=== PATIENT | male | born 1990 | race American Indian/Alaskan Native ===

== ENCOUNTER 2018-07-30 23:14 | Emergency (ER) | payer MEDICAID ==
--- NOTE | 2018-07-30 23:44 | EDM.PDOC ---
ED HPI GENERAL MEDICAL PROBLEM - General Chief Complaint: ENT Problem Stated Complaint: TOOTH PAIN Time Seen by Provider: 07/30/18 23:30 Source of Information: Reports: Patient History Limitations: Reports: No Limitations - History of Present Illness INITIAL COMMENTS - FREE TEXT/NARRATIVE: This patient comes in complaints of a toothache. It's his left upper jaw. He also has a problem with one of his left incisors. He does want dental referral. Left Upper Jaw Pain Score (Numeric/FACES): 8 - Related Data Allergies Allergy/AdvReac Type Severity Reaction Status Date / Time No Known Allergies Allergy Verified 07/30/18 23:29 Home Meds: Home Meds NK [No Known Home Meds] 12/30/14 [History] Past Medical History - Past Health History Medical/Surgical History: Denies Medical/Surgical History Social & Family History - Tobacco Use Smoking Status *Q: Unknown Ever Smoked - Caffeine Use Caffeine Use: Reports: Energy Drinks, Soda - Recreational Drug Use Recreational Drug Use: No ED ROS ENT - Review of Systems Review Of Systems: ROS reveals no pertinent complaints other than HPI. ED EXAM, ENT - Physical Exam Exam: See Below Exam Limited By: No Limitations General Appearance: Alert, Mild Distress Mouth/Throat: Other (Quite a few missing teeth. One of the left upper incisors is severely carious and the most of it is missing left upper molar the last remaining one seems to be tender no obvious abscess however.) Course - Vital Signs Last Recorded V/S: Last Vital Signs Temp 37.0 C 07/30/18 23:27 Pulse 114 H 07/30/18 23:27 Resp 14 07/30/18 23:27 BP 129/77 07/30/18 23:27 Pulse Ox 99 07/30/18 23:27 Departure - Departure Time of Disposition: 23:43 Disposition: Home, Self-Care 01 Condition: Fair Clinical Impression: Toothache - Discharge Information Instructions: Dental Caries, Pediatric Referrals: PCP,None [Primary Care Provider] - Forms: ED Department Discharge Additional Instructions: Use [place] 5/325 one tab every 4-6 hours as needed for pain. (#12) this medication can cause sedation and impair driving. It can cause dependence. Follow-up with the dentist as per your referral.
[2018-07-30 23:51] VITALS: BP 129/77
== END 2018-07-30 23:55 | disposition home or self-care (01) ==
LOC: JP.ED 23:14
DX: K08.89 Other specified disorders of teeth and supporting structures (principal)
CPT/HCPCS: 99283

== ENCOUNTER 2018-08-12 19:18 | Emergency (ER) | payer MEDICAID ==
[2018-08-12 20:10] VITALS: BP 145/95
[2018-08-12] MEDS ORDERED: Ketorolac 60 MG/2 ML SDV IM ONE (20:40)
--- NOTE | 2018-08-12 20:41 | EDM.PDOC ---
ED HPI GENERAL MEDICAL PROBLEM - General Chief Complaint: ENT Problem Stated Complaint: TOOTHACHE Time Seen by Provider: 08/12/18 20:32 Source of Information: Reports: Patient, RN Notes Reviewed History Limitations: Reports: No Limitations - History of Present Illness INITIAL COMMENTS - FREE TEXT/NARRATIVE: 28-year-old gentleman presents emergency department today with complaint of dental pain, he recently chipped tooth and he has had significant pain from that as well as facial swelling but no fevers he is set up through the [facility] for dental referral on Wednesday tooth pain left side Pain Score (Numeric/FACES): 8 - Related Data Allergies Allergy/AdvReac Type Severity Reaction Status Date / Time No Known Allergies Allergy Verified 07/30/18 23:29 Home Meds: Home Meds Acetaminophen [Tylenol] 650 mg PO Q4H PRN 08/12/18 [History] Benzocaine [Orajel] 1 applic TOP Q1H PRN 08/12/18 [History] Past Medical History - Past Health History Medical/Surgical History: Denies Medical/Surgical History - Infectious Disease History Infectious Disease History: Reports: Chicken Pox Social & Family History - Tobacco Use Smoking Status *Q: Current Every Day Smoker Years of Tobacco use: 20 Packs/Tins Daily: 0.5 Used Tobacco, but Quit: No - Caffeine Use Caffeine Use: Reports: Coffee, Soda - Recreational Drug Use Recreational Drug Use: No ED ROS ENT - Review of Systems Review Of Systems: See Below Constitutional: Denies: Fever HEENT: Reports: Dental Pain Respiratory: Reports: No Symptoms ED EXAM, ENT - Physical Exam Exam: See Below Text/Narrative:: Mouth mucosa is moist and pink dentition is poor tooth #10 is broken at the gumline it is tender to the touch mild amount erythema appreciated around tooth , there is also tenderness to palpation on the upper lip around the nose, neck supple no thyromegaly no tracheal deviation cervical nodes Exam Limited By: No Limitations General Appearance: Alert, WD/WN, No Apparent Distress Course - Vital Signs Last Recorded V/S: Last Vital Signs Temp 97.7 F 08/12/18 20:23 Pulse 103 H 08/12/18 20:23 Resp 16 08/12/18 20:23 BP 145/95 H 08/12/18 20:23 Pulse Ox 99 08/12/18 20:08 Departure - Departure Time of Disposition: 20:40 Disposition: Home, Self-Care 01 Condition: Fair Clinical Impression: Dental abscess - Discharge Information Referrals: PCP,None [Primary Care Provider] - Additional Instructions: Take full course of antibiotics, use ibuprofen for baseline pain control use hydrocodone for breakthrough pain, please keep your dentist follow-up on Wednesday - Assessment/Plan Plan: Assessment Acuity = acute Site and laterality = dental abscess tooth #10 Etiology = secondary to dental caries bacterial cause Manifestations = pain Location of injury = Home Lab values = none Plan Prescription written for hydrocodone 5/325 one tab by mouth 3 times a day when necessary total #20, amoxicillin 500 mg by mouth 3 times a day 10 days, was provided 60 mg Toradol in the emergency department he will follow-up with dentistry on Wednesday This note was dictated using [employer] voice recognition software please call with any questions on syntax or grammar.
== END 2018-08-12 21:00 | disposition home or self-care (01) ==
LOC: JP.ED 19:18
DX: K04.7 Periapical abscess without sinus (principal); F17.210 Nicotine dependence, cigarettes, uncomplicated; Z79.899 Other long term (current) drug therapy
CPT/HCPCS: 96372; 99283; J1885

== ENCOUNTER 2018-08-25 16:31 | Emergency (ER) | payer MEDICAID ==
[2018-08-25 16:52] VITALS: BP 135/78
[2018-08-25] MEDS ORDERED: Acetaminophen/Codeine 300-30 MG Tab PO ONE (17:02)
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
== END 2018-08-25 17:34 | disposition home or self-care (01) ==
LOC: JP.ED 16:31
DX: K91.840 Postprocedural hemorrhage of a digestive system organ or structure following a digestive system procedure (principal); F17.210 Nicotine dependence, cigarettes, uncomplicated
CPT/HCPCS: 99283; A9270

== ENCOUNTER 2019-08-03 14:01 | Emergency (ER) | payer MEDICAID ==
[2019-08-03 14:17] VITALS: BP 127/87; PULSE 107
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
== END 2019-08-03 15:32 | disposition home or self-care (01) ==
LOC: JP.ED 14:01
DX: S02.2XXA Fracture of nasal bones, initial encounter for closed fracture (principal); F17.210 Nicotine dependence, cigarettes, uncomplicated; Y04.2XXA Assault by strike against or bumped into by another person, initial encounter
CPT/HCPCS: 70486; 99283-25

== ENCOUNTER 2019-08-24 17:44 | Emergency (ER) | payer MEDICAID ==
[2019-08-24 17:50] VITALS: BP 129/69; PULSE 100
[2019-08-24] MEDS ORDERED: Lidocaine 1% with EPINEPHrine 1:100,000 50 ML MDV SUBCUT STA (18:16)
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
[2019-08-24] MEDS ORDERED: fentaNYL 100 MCG/2 ML SDV IVPUSH ONE (19:29)
--- NOTE | 2019-08-25 09:19 | CR ---
Hand Comp Min 3V Rt CLINICAL HISTORY: Injury FINDINGS: There is no acute fracture or dislocation of the hand. Articular surfaces are smooth. Impression: Negative
== END 2019-08-24 20:05 | disposition home or self-care (01) ==
LOC: JP.ED 17:44
DX: S01.511A Laceration without foreign body of lip, initial encounter (principal); S01.512A Laceration without foreign body of oral cavity, initial encounter; F17.210 Nicotine dependence, cigarettes, uncomplicated; Y04.0XXA Assault by unarmed brawl or fight, initial encounter
CPT/HCPCS: 12011; 12013; 40830; 70486; 73130; 96374; 99283; J3010

== ENCOUNTER 2019-11-05 10:37 | Emergency (ER) | payer MEDICAID ==
[2019-11-05 10:48] VITALS: BP 125/72; PULSE 103
--- NOTE | 2019-11-05 11:27 | EDM.PDOC ---
ED HPI GENERAL MEDICAL PROBLEM - General Chief Complaint: ENT Problem Stated Complaint: BROKEN TEETH, MOUTH PAIN Time Seen by Provider: 11/05/19 11:10 Source of Information: Reports: Patient History Limitations: Reports: No Limitations - History of Present Illness INITIAL COMMENTS - FREE TEXT/NARRATIVE: 29-year-old male with chronic recurring dental caries and dental pain presents with 3 to 4 days of intense left maxillary pain and slight swelling. No fever or chills. Onset: Gradual Duration: Day(s): (4 days) Location: Reports: Face (Left jaw) Associated Symptoms: Reports: No Other Symptoms Oral/Mouth Pain Score (Numeric/FACES): 8 - Related Data Allergies Allergy/AdvReac Type Severity Reaction Status Date / Time No Known Allergies Allergy Verified 11/05/19 10:50 Home Meds: Home Meds NK [No Known Home Meds] 08/03/19 [History] Past Medical History - Past Health History Medical/Surgical History: Denies Medical/Surgical History HEENT History: Reports: None Musculoskeletal History: Reports: Fracture Neurological History: Reports: Concussion - Infectious Disease History Infectious Disease History: Reports: Chicken Pox - Past Surgical History Head Surgeries/Procedures: Reports: None HEENT Surgical History: Reports: Other (See Below) Other HEENT Surgeries/Procedures: wisdom teeth removal Neurological Surgical History: Reports: None Musculoskeletal Surgical History: Reports: None Social & Family History - Tobacco Use Smoking Status *Q: Current Every Day Smoker Years of Tobacco use: 15 Packs/Tins Daily: 0.5 Used Tobacco, but Quit: No Second Hand Smoke Exposure: Yes - Caffeine Use Caffeine Use: Reports: Coffee, Energy Drinks, Soda, Tea - Recreational Drug Use Recreational Drug Use: No ED ROS ENT - Review of Systems Review Of Systems: See Below Constitutional: Denies: Fever, Chills HEENT: Reports: Dental Pain Respiratory: Denies: Shortness of Breath Cardiovascular: Denies: Chest Pain GI/Abdominal: Denies: Nausea, Vomiting Skin: Denies: Erythema Neurological: Denies: Headache ED EXAM, ENT - Physical Exam Exam: See Below Exam Limited By: No Limitations General Appearance: Alert, No Apparent Distress (Looks uncomfortable but not distressed) Mouth/Throat: Other (Left maxillary canine has significant deep caries present with some gingival erythema. Very tender to percussion of the tooth.) Course - Vital Signs Last Recorded V/S: Last Vital Signs Temp 97.1 F 11/05/19 10:50 Pulse 103 H 11/05/19 10:50 Resp 13 11/05/19 10:50 BP 125/72 11/05/19 10:50 Pulse Ox 97 11/05/19 10:50 - Re-Assessments/Exams Free Text/Narrative Re-Assessment/Exam: 11/05/19 12:00 Likely an infection of the left maxillary canines. Patient was placed on penicillin VK 500 mg 4 times a day for 10 full days, encouraged to continue with ibuprofen and also given 10 hydrocodone for extra pain control. A TITLE I INSTRUCTIONAL ASSISTANT search shows small limited prescriptions for dental pain over the past year. Information was given to the patient to contact our dental clinic this week. Departure - Departure Time of Disposition: 11:32 Disposition: Home, Self-Care 01 Clinical Impression: Dental abscess - Discharge Information Instructions: Dental Abscess Referrals: PCP,None [Primary Care Provider] - Forms: ED Department Discharge Care Plan Goals: Take antibiotic as prescribed, ibuprofen will help and add stronger pain medication as needed for breakthrough pain. Contact the dental clinic next week to discuss an appointment time. Do not stop antibiotic until it is finished. Return if worsening despite treatment. Sepsis Event Note - Evaluation Sepsis Screening Result: No Definite Risk - Focused Exam Vital Signs: Vital Signs Temp Pulse Resp BP Pulse Ox 11/05/19 10:50 97.1 F 103 H 13 125/72 97 11/05/19 10:46 97.1 F 103 H 13 125/72 97 Date Exam was Performed: 11/05/19 Time Exam was Performed: 11:59
== END 2019-11-05 11:32 | disposition home or self-care (01) ==
LOC: JP.ED 10:37
DX: K04.7 Periapical abscess without sinus (principal); K02.9 Dental caries, unspecified; F17.210 Nicotine dependence, cigarettes, uncomplicated; Z98.818 Other dental procedure status
CPT/HCPCS: 99283

== ENCOUNTER 2020-03-20 14:20 | Emergency (ER) | payer MEDICAID ==
[2020-03-20 14:36] VITALS: BP 133/77; PULSE 100
--- NOTE | 2020-03-20 14:48 | EDM.PDOC ---
ED HPI GENERAL MEDICAL PROBLEM - General Chief Complaint: Upper Extremity Injury/Pain Stated Complaint: PAIN IN LEFT WRIST AREA Time Seen by Provider: 03/20/20 14:44 Source of Information: Reports: Patient, RN Notes Reviewed History Limitations: Reports: No Limitations - History of Present Illness INITIAL COMMENTS - FREE TEXT/NARRATIVE: 29-year-old gentleman presents emergency department a complaint of right hand pain he injured himself couple days ago he is not sure of the mechanism of action he has difficulty opening and closing digits 4 and 5 Left Hand Pain Score (Numeric/FACES): 8 - Related Data Allergies Allergy/AdvReac Type Severity Reaction Status Date / Time No Known Allergies Allergy Verified 11/05/19 10:50 Home Meds: Home Meds NK [No Known Home Meds] 08/03/19 [History] Past Medical History Musculoskeletal History: Reports: Fracture Neurological History: Reports: Concussion - Infectious Disease History Infectious Disease History: Reports: Chicken Pox - Past Surgical History Head Surgeries/Procedures: Reports: None HEENT Surgical History: Reports: Other (See Below) Other HEENT Surgeries/Procedures: wisdom teeth removal Neurological Surgical History: Reports: None Musculoskeletal Surgical History: Reports: None Social & Family History - Tobacco Use Smoking Status *Q: Light Tobacco Smoker - Caffeine Use Caffeine Use: Reports: Coffee, Energy Drinks, Soda - Recreational Drug Use Recreational Drug Use: No Review of Systems - Review of Systems Review Of Systems: See Below Constitutional: Reports: No Symptoms Musculoskeletal: Reports: Hand Pain Skin: Reports: Bruising ED EXAM, GENERAL - Physical Exam Exam: See Below Free Text/Narrative:: Examination of the right hand I do appreciate some edema over the dorsal aspect of the hand there is also some bruising in the palmar aspect he has difficulty closing digits 4 and 5 secondary to pain radial pulses +2 sensation is intact ED TRAUMA EXTREMITY PROCEDURES - Splinting Left Upper Extremity Splint Site: Wrist Pre-Procedure NV Status: Normal Post-Procedure NV Status: Normal Splint Material: Fiberglass Splint Design: Gutter Applied & Form Fitted By: Provider, Nurse Provider Post-Splint Application NV Check: NV Status Normal, Good Position Complications: No Course - Vital Signs Last Recorded V/S: Last Vital Signs Temp 96.8 F L 03/20/20 14:36 Pulse 100 03/20/20 14:36 Resp 16 03/20/20 14:36 BP 133/77 09/02/20 14:36 Pulse Ox 99 03/20/20 14:36 - Orders/Labs/Meds Orders: Active Orders 24 hr Category Date Time Status Notify Provider Consults [RC] ASDIRECTED Care 03/20/20 15:36 Ordered Consult to Orthopedic Clinic [CONS] Routine Cons 03/20/20 15:36 Ordered Consult to Physician [CONS] Routine Cons 03/20/20 15:36 Ordered Departure - Departure Time of Disposition: 15:39 Disposition: Home, Self-Care 01 Condition: Fair Clinical Impression: Fracture of metacarpal bone Qualifiers: Encounter type: initial encounter Metacarpal bone: fifth Fracture type: closed Metacarpal location: neck Fracture alignment: displaced Laterality: left Qualified Code(s): S62.337A - Displaced fracture of neck of fifth metacarpal bone, left hand, initial encounter for closed fracture - Discharge Information Instructions: Metacarpal Fracture, [id number] Referrals: PCP,None [Primary Care Provider] - Forms: ED Department Discharge Additional Instructions: Use ibuprofen for baseline pain control use hydrocodone for breakthrough pain, please follow-up with orthopedics next week for further treatment continue to use the splint may take off for bathing Sepsis Event Note (ED) - Evaluation Sepsis Screening Result: No Definite Risk - Focused Exam Vital Signs: Vital Signs Temp Pulse Resp BP Pulse Ox 03/20/20 14:36 96.8 F L 100 16 133/77 99 03/20/20 14:34 96.8 F L 100 16 133/77 99 - My Orders Last 24 Hours: My Active Orders 03/20/20 15:36 Notify Provider Consults [RC] ASDIRECTED Consult to Orthopedic Clinic [CONS] Routine Consult to Physician [CONS] Routine - Assessment/Plan Last 24 Hours: My Active Orders 03/20/20 15:36 Notify Provider Consults [RC] ASDIRECTED Consult to Orthopedic Clinic [CONS] Routine Consult to Physician [CONS] Routine Plan: Assessment Acuity = acute Site and laterality = fifth metatarsal fracture left hand closed distal Etiology = unknown Manifestations = none Location of injury = Home Lab values = x-ray describes a fracture above Plan Discussed case with Dr. Murdock at 1530 currently agreed to see the patient in clinic in 1 week's time in the meantime he is placed in ulnar gutter splint hydrocodone 5/325 1 tab p.o. 3 times daily as needed given for pain control This note was dictated using [employer] voice recognition software please call with any questions on syntax or grammar.
--- NOTE | 2020-03-20 15:04 | CR ---
Hand Comp Min 3V Lt CLINICAL HISTORY: Fall FINDINGS: There is a comminuted minimally displaced fracture with palmar angulation at the distal fifth metacarpal. There is marginal articular surface involvement. Impression: Fracture fifth metacarpal
== END 2020-03-20 15:45 | disposition home or self-care (01) ==
LOC: JP.ED 14:20
DX: S62.337A Displaced fracture of neck of fifth metacarpal bone, left hand, initial encounter for closed fracture (principal); F17.200 Nicotine dependence, unspecified, uncomplicated; X58.XXXA Exposure to other specified factors, initial encounter
CPT/HCPCS: 29125; 73130-26-LT; 73130-LT; 99283-25

== ENCOUNTER 2020-06-29 22:42 | Emergency (ER) | payer MEDICAID ==
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
[2020-06-29 23:15] VITALS: BP 125/76; PULSE 124
[2020-06-29] MEDS ORDERED: Ketorolac 60 MG/2 ML SDV ONE (23:17)
[2020-06-29] MEDS ORDERED: Bacitracin Oint 1 GM U/D Packet ONE (23:17)
[2020-06-29] MEDS ORDERED: Ketorolac 60 MG/2 ML SDV IM ONE (23:20)
[2020-06-29] MEDS ORDERED: Bacitracin Oint 1 GM U/D Packet TOP ONE (23:20)
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
== END 2020-06-29 23:39 | disposition home or self-care (01) ==
LOC: JP.ED 22:42
DX: S51.012A Laceration without foreign body of left elbow, initial encounter (principal); Y04.0XXA Assault by unarmed brawl or fight, initial encounter
CPT/HCPCS: 12001; 73080-26-LT; 73080-LT; 96372; 99283; 99284-25; J1885

== ENCOUNTER 2021-01-20 13:28 | Emergency (ER) | payer MEDICAID ==
[2021-01-20 14:14] VITALS: BP 133/78; PULSE 107
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
[2021-01-20] MEDS ORDERED: Bacitracin Oint 1 GM U/D Packet TOP ONE (14:33)
--- NOTE | 2021-01-21 08:48 | CR ---
Forearm 2V Lt CLINICAL HISTORY: Trauma FINDINGS: There is no acute fracture within the forearm. IMPRESSION: Negative left forearm.
== END 2021-01-20 14:45 | disposition home or self-care (01) ==
LOC: JP.ED 13:28
DX: S51.812A Laceration without foreign body of left forearm, initial encounter (principal); W21.11XA Struck by baseball bat, initial encounter; Y93.64 Activity, baseball
CPT/HCPCS: 73090-26-LT; 73090-LT; 99283

== ENCOUNTER 2021-03-18 16:46 | Emergency (ER) | payer MEDICAID ==
[2021-03-18 17:11] VITALS: BP 121/69; PULSE 86
--- NOTE | 2021-03-18 17:15 | EDM.PDOCBH ---
ED HPI GENERAL MEDICAL PROBLEM - General Chief Complaint: Drug or Alcohol Abuse Stated Complaint: ABDI ARRIAGA Time Seen by Provider: 03/18/21 17:00 Source of Information: Reports: Patient, Old Records, RN History Limitations: Reports: No Limitations - History of Present Illness INITIAL COMMENTS - FREE TEXT/NARRATIVE: 30 yo male here with a request for medical clearance for detox at [facility]. Uses Heroin. No ETOH. No recent illness. 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 SPECIALIST: Reports: Other (see below) (none) - Related Data Allergies Allergy/AdvReac Type Severity Reaction Status Date / Time No Known Allergies Allergy Verified 01/20/21 14:15 Home Meds: Home Meds Buprenorphine HCl/Naloxone HCl [Buprenorphine-Nalox 8-2Mg Film] 1 dose PO DAILY 01/20/21 [History] Amoxicillin 875 mg PO BID #14 tab 03/18/21 [Rx] Past Medical History - Past Health History Medical/Surgical History: Denies Medical/Surgical History HEENT History: Reports: None Musculoskeletal History: Reports: Fracture Other Musculoskeletal History: left hand boxers Fx 03/20/20 Neurological History: Reports: Concussion - Infectious Disease History Infectious Disease History: Reports: Chicken Pox - Past Surgical History Head Surgeries/Procedures: Reports: None HEENT Surgical History: Reports: Other (See Below) Other HEENT Surgeries/Procedures: wisdom teeth removal Neurological Surgical History: Reports: None Musculoskeletal Surgical History: Reports: None Social & Family History - Tobacco Use Tobacco Use Status *Q: Current Every Day Tobacco User Years of Tobacco use: 18 Packs/Tins Daily: 0.5 - Caffeine Use Caffeine Use: Reports: Coffee, Soda, Tea - Recreational Drug Use Recreational Drug Use: Yes Drug Use in Last 12 Months: Yes Recreational Drug Type: Reports: Heroin Recreational Drug Use Frequency: Daily ED ROS GENERAL - Review of Systems Review Of Systems: See Below Constitutional: Reports: No Symptoms HEENT: Reports: No Symptoms Respiratory: Reports: No Symptoms Cardiovascular: Reports: No Symptoms Endocrine: Reports: No Symptoms GI/Abdominal: Reports: No Symptoms : Reports: No Symptoms Musculoskeletal: Reports: No Symptoms Skin: Reports: No Symptoms Neurological: Reports: No Symptoms ED EXAM, BEHAVIORAL HEALTH - Physical Exam Exam: See Below Exam Limited By: No Limitations General Appearance: Alert, WD/WN, No Apparent Distress Eye Exam: Bilateral Eye: Normal Inspection Ears: Normal External Exam, Normal Canal, Hearing Grossly Normal, Other (R TM is slightly red) Nose: Normal Inspection, No Blood Throat/Mouth: Normal Inspection, Normal Lips, Normal Voice, No Airway Compromise Head: Atraumatic, Normocephalic Neck: Normal Inspection Respiratory/Chest: No Respiratory Distress, Lungs Clear, Normal Breath Sounds, No Accessory Muscle Use Cardiovascular: Regular Rate, Rhythm, No Edema GI/Abdominal: Normal Bowel Sounds, Soft, Non-Tender, No Distention Back Exam: Normal Inspection Extremities: Normal Inspection Neurological: Alert, Normal Mood/Affect, CN II-XII Intact, Normal Cognition, No Motor/Sensory Deficits, Oriented x 3 Psychiatric: Alert, Normal Affect, Normal Cognition, Normal Mood, Oriented Skin Exam: Warm, Dry, Intact, Normal color, No rash COURSE, BEHAVIORAL HEALTH COMP - Course Vital Signs: Last Vital Signs Temp 36.4 C 03/18/21 17:01 Pulse 86 03/18/21 17:01 Resp 16 03/18/21 17:01 BP 121/69 03/18/21 17:01 Pulse Ox 96 03/18/21 17:01 Orders, Labs, Meds: Active Orders 24 hr Category Date Time Status ETOH [ETHANOL BLOOD MEDICAL] [CHEM] Stat Lab 03/18/21 17:04 Ordered Laboratory Tests 03/18/21 03/18/21 Range/Units 17:04 17:08 Urine Opiates Screen Negative (NEGATIVE) Ur Oxycodone Screen Negative (NEGATIVE) Urine Methadone Screen Negative (NEGATIVE) Ur Propoxyphene Screen Negative (NEGATIVE) Ur Barbiturates Screen Negative (NEGATIVE) Ur Tricyclics Screen Negative (NEGATIVE) Ur Phencyclidine Scrn Negative (NEGATIVE) Ur Amphetamine Screen Negative (NEGATIVE) U Methamphetamines Scrn Presumptive positive H (NEGATIVE) Urine MDMA Screen Negative (NEGATIVE) U Benzodiazepines Scrn Negative (NEGATIVE) U Cocaine Metab Screen Negative (NEGATIVE) U Marijuana (THC) Screen Negative (NEGATIVE) SARS CoV-2 RNA Rapid AMEE Negative Departure - Departure Time of Disposition: 17:45 Disposition: DC/Tfer to Other Condition: Good Clinical Impression: Opiate abuse, episodic Otitis media Qualifiers: Otitis media type: serous Chronicity: acute Laterality: right Recurrence: non- recurrent Qualified Code(s): H65.01 - Acute serous otitis media, right ear - Discharge Information *PRESCRIPTION DRUG MONITORING PROGRAM REVIEWED*: Not Applicable *COPY OF PRESCRIPTION DRUG MONITORING REPORT IN PATIENT RODOLFO: Not Applicable Prescriptions: Amoxicillin 875 mg PO BID #14 tab Referrals: PCP,None [Primary Care Provider] - Forms: ED Department Discharge Additional Instructions: If your ear hurts more tomorrow, then fill your Rx for amoxicillin and take as directed until gone. Recheck if worse. Sepsis Event Note (ED) - Evaluation Sepsis Screening Result: No Definite Risk - Focused Exam Vital Signs: Vital Signs Temp Pulse Resp BP Pulse Ox 03/18/21 17:01 36.4 C 86 16 121/69 96 03/18/21 16:57 36.4 C 86 16 121/69 96 - My Orders Last 24 Hours: My Active Orders 03/18/21 17:04 ETOH [ETHANOL BLOOD MEDICAL] [CHEM] Stat - Assessment/Plan Last 24 Hours: My Active Orders 03/18/21 17:04 ETOH [ETHANOL BLOOD MEDICAL] [CHEM] Stat
== END 2021-03-18 21:31 | disposition other institution (70) ==
LOC: JP.ED 16:46
DX: F11.10 Opioid abuse, uncomplicated (principal); H65.01 Acute serous otitis media, right ear; Z72.0 Tobacco use; Z20.822 Contact with and (suspected) exposure to COVID-19
CPT/HCPCS: 36415; 80305-QW; 80307; 99284; U0002

== ENCOUNTER 2023-01-11 21:22 | Emergency (ER) | payer MEDICAID | END 2023-01-11 23:45 | disposition left against medical advice (07) | LOC: JP.ED 21:22 | DX: Z53.21 Procedure and treatment not carried out due to patient leaving prior to being seen by health care provider (principal) ==

== ENCOUNTER 2023-02-20 16:55 | Emergency (ER) | payer MEDICAID ==
[2023-02-20 17:43] VITALS: BP 145/85; PULSE 58
[2023-02-20] MEDS ORDERED: Silver Sulfadiazine 1% Crm 400 GM Jar TOP ONE (18:14)
[2023-02-20] MEDS ORDERED: Ibuprofen 400 MG Tab PO ONE (18:46)
[2023-02-20] MEDS ORDERED: Silver Sulfadiazine 1% Crm 50 GM Tube TOP ONE (18:48)
== END 2023-02-20 19:14 | disposition home or self-care (01) ==
LOC: JP.ED 16:55
DX: T24.201A Burn of second degree of unspecified site of right lower limb, except ankle and foot, initial encounter (principal); X19.XXXA Contact with other heat and hot substances, initial encounter
CPT/HCPCS: 99282; 99283; A9270

== ENCOUNTER 2025-05-04 22:54 | Emergency (ER) | payer MEDICAID ==
[2025-05-04 23:07] LABS: BASOPHILS ABSOLUTE AUTO 0.05 K/uL (0.00-0.10); BASOPHILS PERCENT AUTO 0.5 % (0.1-1.3); EOSINOPHILS ABSOLUTE AUTO 0.25 K/uL (0.00-0.40); EOSINOPHILS PERCENT AUTO 2.5 % (0.0-5.4); IMMATURE GRAN ABSOLUTE AUTO 0.04 K/uL (0.00-0.23); IMMATURE GRAN PERCENT AUTO 0.4 % (0.0-0.7); LYMPHOCYTES ABSOLUTE AUTO 2.04 K/uL (0.8-3.3); LYMPHOCYTES PERCENT AUTO 20.1 % (11.4-47.7); MONOCYTES ABSOLUTE AUTO 0.91 K/uL (0.20-0.90); MONOCYTES PERCENT AUTO 9.0 % (3.3-12.6); NEUTROPHILS ABSOLUTE AUTO 6.86 K/uL (1.0-7.6); NEUTROPHILS PERCENT AUTO 67.5 % (40.0-78.1); PLATELET COUNT,PLT 346 K/uL (130-375); RED BLOOD CELL COUNT 4.72 M/uL (4.14-5.76); WHITE BLOOD CELL COUNT,WBC 10.2 K/uL (3.2-11.0)
[2025-05-04 23:16] VITALS: BP 105/53; PULSE 102
[2025-05-04 23:22] LABS: BLOOD UREA NITROGEN,BUN 13.0 mg/dL (7-18); CARBON DIOXIDE,CO2 27.0 mmol/L (21-32); CHLORIDE,CL 107.0 mmol/L (100-108); CREATININE 1.1 mg/dL (0.8-1.3); EST CRCL DRUG DOSING (CG) 86.8 mL/min; ESTIMATED GFR 89.0 mL/min (>60); GLUCOSE RANDOM 96.0 mg/dL (74-106); POTASSIUM,K 4.1 mmol/L (3.6-5.2); SODIUM,NA 142.0 mmol/L (140-148)
[2025-05-04 23:24] LABS: AMPHETAMINES SCREEN, URINE PRESUMPTIVE POSITIVE (NEGATIVE); METHADONE SCREEN, URINE NEGATIVE (NEGATIVE); METHAMPHETAMINES SCREEN, URINE PRESUMPTIVE POSITIVE (NEGATIVE); OXYCODONE SCREEN,URINE NEGATIVE (NEGATIVE); PROPOXYPHENE SCREEN,URINE NEGATIVE (NEGATIVE); THC SCREEN,URINE 50 NG/ML NEGATIVE (NEGATIVE)
== END 2025-05-04 23:37 | disposition home or self-care (01) ==
LOC: JP.ED 22:54
DX: T71.161A Asphyxiation due to hanging, accidental, initial encounter (principal); S10.91XA Abrasion of unspecified part of neck, initial encounter; F17.200 Nicotine dependence, unspecified, uncomplicated; X58.XXXA Exposure to other specified factors, initial encounter
CPT/HCPCS: 36415; 80048; 80305-QW; 80307; 85025; 99285